=== PATIENT | male | born 1975 | race Caucasian/White ===

== ENCOUNTER 2016-11-29 13:38 | Outpatient (CLI) ==
[2015-10-26 20:24] VITALS: BMI 29.2
[2016-11-29 14:11] LABS: BASOPHILS % (AUTO) 0.5 % (0.0-3.0); EOSINOPHILS # (AUTO) 0.1 K/ul (0.0-0.7); EOSINOPHILS % (AUTO) 1.4 % (0.0-7.0); HEMATOCRIT 43.8 % (42.0-52.0); HEMOGLOBIN 15.4 g/dl (14.0-18.0); IMMATURE GRANULOCYTE % (AUTO) 0.3 % (0.0-5.0); LYMPHOCYTES # (AUTO) 1.8 K/uL (0.60-3.4); LYMPHOCYTES % (AUTO) 24.2 (10.0-50.0); MEAN CORPUSCULAR HEMOGLOBIN 32.8 pg (27.0-31.0); MEAN CORPUSCULAR HGB CONC 35.2 (31.8-35.4); MEAN CORPUSCULAR VOLUME 93.2 fl (80.0-94.0); MONOCYTES # (AUTO) 0.6 K/uL (0.4-2.0); MONOCYTES % (AUTO) 7.8 (0-10); NEUTROPHILS # (AUTO) 4.8 K/ul (2.0-6.9); NEUTROPHILS % (AUTO) 65.8; PLATELET COUNT 212 10^3/uL (140-440); WHITE BLOOD COUNT 7.28 K/ul (4.2-10.2)
[2016-11-29 14:51] LABS: ALBUMIN 3.8 g/dL (3.4-5.0); ALBUMIN/GLOBULIN RATIO 1.36; ANION GAP 13.5; BILIRUBIN,TOTAL 0.5 mg/dL (0.00-1.20); BUN/CREATININE RATIO 11.6; CHOL/HDL RATIO 2.9 (4.5-6.4); CREATININE 1.12 mg/dL (0.60-1.10); POTASSIUM 4.5 mmol/L (3.5-5.1); TOTAL PROTEIN 6.6 g/dL (6.4-8.2)
--- NOTE | 2016-11-29 15:05 | DI ---
EXAM: PA and lateral views of the chest HISTORY: Primary hypertension COMPARISON: None FINDINGS: The cardiomediastinal silhouette is normal. There is no pneumothorax or pleural effusion . There is no consolidation, nodule or mass. The osseous structures are unremarkable. IMPRESSION: No acute cardiopulmonary process
--- NOTE | 2016-11-29 15:08 | DI ---
EXAM: Three views of the cervical spine HISTORY: Upper extremity bilateral paresthesias. COMPARISON: None FINDINGS: Vertebral bodies demonstrate normal height, disc space and alignment. There is no nehal thony fracture or subluxation. The facets and posterior processes are normal. Prevertebral soft tis sues are normal. The odontoid process is midline without fracture. IMPRESSION: No acute osseous abnormality or compression fracture of the cervical spine.
== END 2016-11-29 13:39 | disposition home or self-care (01) ==
LOC: LAB 13:38
PROVIDERS: ATTEND Nurse Practitioner Family
DX: E78.5 Hyperlipidemia, unspecified (principal); F32.9 Major depressive disorder, single episode, unspecified; I10 Essential (primary) hypertension; M51.9 Unspecified thoracic, thoracolumbar and lumbosacral intervertebral disc disorder; R20.2 Paresthesia of skin; E55.9 Vitamin D deficiency, unspecified; R53.83 Other fatigue
CPT/HCPCS: 36415; 80053; 80061; 82306; 84402; 85025; 93005; 93010

== ENCOUNTER 2016-12-15 09:31 | Outpatient (CLI) ==
[2015-10-26 20:24] VITALS: BMI 29.2
--- NOTE | 2016-12-15 10:38 | DI ---
EXAM: Chest two view, frontal and lateral views. HISTORY: Severe hypertension. COMPARISON: None available. FINDINGS: The heart size is normal. There is no pulmonary vascular congestion. The lungs are matthias r. No pleural effusion or pneumothorax is seen. No acute osseous abnormality identified. IMPRESSION: No acute cardiopulmonary process.
--- NOTE | 2016-12-15 11:14 | US ---
EXAM: Ultrasound retroperitoneal complete. HISTORY: Severe hypertension. COMPARISON: None available. TECHNIQUE: Multiple cummings scale and color Doppler images. FINDINGS: Right kidney measures 10.5 x 4.6 x 4.7 cm. The left kidney measures 11.1 x 5.4 x 4.2 cm. Simple right renal cyst measures 1.3 x 0.9 x 1.1 cm in the upper pole cortex. Corticomedullary di fferentiation is normal. There is no hydronephrosis. Urinary bladder is unremarkable. IMPRESSION: 1. No acute sonographic abnormality of the kidneys or bladder. 2. Simple right renal cyst.
--- NOTE | 2016-12-15 11:15 | US ---
EXAM: Ultrasound renal Doppler. HISTORY: Severe hypertension. COMPARISON: None available. TECHNIQUE: Cheng-scale and color Doppler images. FINDINGS: Right kidney measures 10.5 cm in length. There is no hydronephrosis. Peak systolic velocity measurement in the right renal artery are 1.2, 1.1 and 1.0 meters per second in the origin, midportion and distal portion respectively. Right renal artery to aortic ratios john ure 1.2, 1.1 and 1.0. Right renal resistive index measures 0.59. Left kidney measures 11.1 cm in length. There is no hydronephrosis. Peak systolic velocity measurements in the left renal artery are 1.0, 0.9 and 0.9 meters per second in the origin, midportion and distal portion respectively. Left renal artery to aortic ratios measu re 1.0, 0.9 and 0.9. Left renal resistive index measures 0.53. Venous outflow is seen bilaterally. IMPRESSION: No evidence for hemodynamically significant stenosis in the right or left renal artery.
== END 2016-12-15 09:32 | disposition home or self-care (01) ==
LOC: RAD 09:31
PROVIDERS: ATTEND Internal Medicine
DX: I10 Essential (primary) hypertension (principal)
CPT/HCPCS: 76770

== ENCOUNTER 2016-12-16 06:27 | Outpatient (CLI) ==
[2015-10-26 20:24] VITALS: BMI 29.2
--- NOTE | 2016-12-19 12:22 | ECHO2D ---
Date of Exam: 12/16/16 Ordering Physician: [facility] Reason for Echo: HTN, ABNORMAL EKG M-Mode Normal Adult Results LV Dimensions Normal Adult Results AoV Opening excursions >1.6 >1.6 LVEDD-base- 3.5-5.8 4.3 Ao root dimensions 2.0-3.7 3.3 LVESD-base- 3.1-4.6 L. Atrium dimensions 1.9-3.8 3.6 Post. Wall thickness 0.8-1.1 1.3 IV septum (thickness) 0.7-1.2 1.4 Post. Wall excursion 0.72-1.3 NORMAL Septal motion NORMAL Systolic motion R. Ventricular cavity 1.5-2.0 NORMAL LVEF 60% 55% Paradoxical septal wall motion NORMAL 2-D :2-D M Mode Echocardiogram was performed using apical four chamber and left parasternal long and short axis views. Mitral, tricuspid and aortic valves appear to be normal. Contractility of the left ventricle seems to be normal, so is the cavity size. Left atrial cavity size and aortic root appear to be normal. There is no pericardial effusion. There is no thrombus noted in the left ventricular or left aortic cavity. No mitral valve prolapse noted. M-MODE: MV: NORMAL AV: NORMAL TV: NORMAL PV: CHAMBER SIZE: NORMAL WALL MOTION: NORMAL PERICARDIUM: NORMAL INTERPRETATION: 1. MILD LEFT VENTRICULAR HYPERTROPHY 2. NORMAL LEFT VENTRICULAR CONTRACTILITY 3. NORMAL VALVES MTDD
== END 2016-12-16 06:28 | disposition home or self-care (01) ==
LOC: CAR 06:27
PROVIDERS: ATTEND Internal Medicine
DX: I10 Essential (primary) hypertension (principal); R94.31 Abnormal electrocardiogram [ECG] [EKG]

== ENCOUNTER 2016-12-19 06:27 | Outpatient (CLI) ==
[2015-10-26 20:24] VITALS: BMI 29.2
--- NOTE | 2016-12-20 09:08 | STRESSECHO ---
Date of Test: 12/19/16 Reason for Exam: HTN, ABNORMAL EKG Ordering Physician: GINO Current Medications: CELEXA, LISINOPRIL, NORCO, TIZANIDINE, ZOFRAN, GABAPENTIN Physical Findings: S1, S2, NO S3 Resting EKG: SINUS RHYTHM/NO ACUTE CHANGES Target Heart Rate: 152/179 STAGE MPH/GRADE HEART RATE BPM BLOOD PRESSURE mmhg RHYTHM S-T SEGMENT +/- UP DOWN SYMPTOMS,COMMENTS At Rest 60 118/82 SR X NONE 1 1.7/10% 100 146/76 SR X NONE 2 2.5/12% 3 3.4/14% 4 4.2/16% 5 5.0/18% Immediately after 104 138/80 SR X BACK PAIN Durations of Exercise: 4:41 Maximum Heart Rate Reached: 104 Reason for Termination: BACK PAIN 4 MIN POST EXERCISE: HR 57 BPM, BP 138/88 MMHG, SINUS RHYTHM, S-T SEGMENT +/- INTERPRETATION: 92% OXYGEN SATURATION WITH EXERCISE ON ROOM AIR METS 4.6 1. NO EVIDENCE OF ISCHEMIA BY ST-T WAVE CHANGES FROM HEART RATE 60/MINUTE TO 104 /MINUTE 2. NO CHEST PAIN OR CHEST DISCOMFORT 3. NO ARRHYTHMIAS 4. NO ST-T WAVE CHANGES FROM BASELINE NORMAL LEFT VENTRICULAR CONTRACTILITY--RESTING AND POST EXERCISE MTDD
--- NOTE | 2016-12-21 08:46 | ECHOSTRESS ---
Date of Exam: 12/19/16 Ordering Physician: JOSE ALFREDO Reason for Echo: HYPERTENSION, ABNORMAL EKG, STRESS TEST--NO ISCHEMIA M-Mode Normal Adult Results LV Dimensions Normal Adult Results AoV Opening excursions >1.6 LVEDD-base- 3.5-5.8 Ao root dimensions 2.0-3.7 LVESD-base- 3.1-4.6 L. Atrium dimensions 1.9-3.8 Post. Wall thickness 0.8-1.1 IV septum (thickness) 0.7-1.2 Post. Wall excursion 0.72-1.3 Septal motion Systolic motion R. Ventricular cavity 1.5-2.0 LVEF 60% Paradoxical septal wall motion 2-D: NORMAL LEFT VENTRICULAR CONTRACTILITY--RESTING AND POST EXERCISE M-MODE: MV: AV: TV: PV: CHAMBER SIZE: WALL MOTION: NORMAL LEFT VENTRICULAR CONTRACTILITY--RESTING AND POST EXERCISE PERICARDIUM: INTERPRETATION: 1. NORMAL LEFT VENTRICULAR CONTRACTILITY--RESTING AND POST EXERCISE MTDD
== END 2016-12-19 06:28 | disposition home or self-care (01) ==
LOC: CAR 06:27
PROVIDERS: ATTEND Internal Medicine
DX: I10 Essential (primary) hypertension (principal); R94.31 Abnormal electrocardiogram [ECG] [EKG]

== ENCOUNTER 2017-02-11 00:01 | Outpatient (CLI) ==
[2015-10-26 20:24] VITALS: BMI 29.2
== END 2017-02-11 00:02 ==
LOC: AMBL 00:01
PROVIDERS: ATTEND Internal Medicine Geriatric Medicine
DX: S01.01XA Laceration without foreign body of scalp, initial encounter (principal); R42 Dizziness and giddiness; F10.129 Alcohol abuse with intoxication, unspecified; R11.0 Nausea; H57.04 Mydriasis; Y00.XXXA Assault by blunt object, initial encounter

== ENCOUNTER 2017-02-20 09:59 | Outpatient (CLI) ==
[2015-10-26 20:24] VITALS: BMI 29.2
--- NOTE | 2017-02-20 13:38 | MRI ---
EXAM: Lumbar spine MRI without contrast. HISTORY: Low back pain with radiculopathy. COMPARISON: Lumbar spine MRI 09/23/2015 and lumbar spine radiographs 10/09/2015. TECHNIQUE: Multiplanar, multisequence MR images were acquired of the lumbar spine without contrast. FINDINGS: Five lumbar-type vertebra are present. There is 2.5 mm degenerative retrolisthesis of L4 on L5 and 2 mm anterolisthesis of L5 on S1 due to chronic bilateral L5 pars interarticularis defect s. The lumbar vertebra are normal in height. Intrinsic bone marrow signal is heterogeneous with sm all areas of fatty infiltration. There is mild disc space narrowing and disc desiccation at L4-5 an d L5-S1. Small ventral and lateral osteophytes are present in the lower lumbar spine. There is mil d endplate irregularity with bright STIR signal edema along the posterior endplates at L4-5. This m ay be due to increased stress or motion at this level. Conus medullaris ends at L1 and has normal s ignal intensity. Canal diameter is developmentally narrow. The partially visualized liver, spleen and left kidney are unremarkable. There is either a prominen t yolanda or cyst in the upper pole of the right kidney. L1-2: The intervertebral disc is normal. L2-3: The intervertebral disc is normal. L3-4: There is a minimal disc bulge without central canal stenosis or foraminal stenosis. L4-5: There is a minor disc bulge with a small central disc protrusion and annular fissure that eff aces the ventral thecal sac. Mild bilateral facet arthropathy and ligamentum flavum hypertrophy is p resent and there is mild spinal stenosis and minor bilateral foraminal stenosis. L5-S1: There is anterolisthesis of L5 on S1 and there is a pseudo disc bulge/posterior disc bulge t hat is asymmetric to the left with a small superimposed left foraminal disc protrusion and annular f issure that encroaches on the traversing left L4 nerve. Mild bilateral facet arthropathy and mild l igamentum flavum hypertrophy is present. There is mild left and minor right foraminal stenosis. IMPRESSION: 1. No change 2 mm anterolisthesis L5 on S1 due to chronic bilateral L5 pars interarticularis defect s. 2. Mild disc bulge L5-S1 that is asymmetric to the left with small left foraminal disc protrusion t hat encroaches on the left L5 nerve. 3. Small central disc protrusion L4-5 and mild spinal stenosis.
== END 2017-02-20 10:00 | disposition home or self-care (01) ==
LOC: RAD 09:59
PROVIDERS: ATTEND Nurse Practitioner Family
DX: M51.9 Unspecified thoracic, thoracolumbar and lumbosacral intervertebral disc disorder (principal); M54.10 Radiculopathy, site unspecified

== ENCOUNTER 2017-03-08 09:02 | Outpatient (CLI) ==
[2015-10-26 20:24] VITALS: BMI 29.2
--- NOTE | 2017-03-08 14:58 | MRI ---
EXAM: MRI cervical spine without IV contrast. DATE: 03/08/2017. HISTORY: Cervicalgia. TECHNIQUE: Sagittal and axial T1W and T2W sequences of the cervical spine along with sagittal IR an d coronal T2W sequences were obtained using 1.5 Nanci magnet. No IV contrast. COMPARISON: C-spine x-rays 02/26/2017. MRI T-spine seven September 2015. FINDINGS: Minimal rightward curvature of the mid cervical spine is noted. No acute c-spine fractur e, subluxation, osseous malignancy, or jumped facet is evident. Cervical vertebra are normal in hei ght. Bone marrow signal is normal. The intervertebral discs are normal in height and signal. Cerv ical and upper thoracic spinal cord reveals no syrinx, cord edema, myelomalacia, or neoplasm. Visible brainstem and cerebellum are normal. Minor adenoid tissue prominence is benign. Trachea, l arynx, and epiglottis are normal. No thyroid, submandibular, or parotid gland neoplasm is evident. No cervical lymphadenopathy, neck mass, apical lung mass, pneumonia, or pleural effusion is demonst rated. Segmental analysis: C2-3: Normal. C3-4: Minor posterior disc bulge (1.2 mm AP) does not contact the cord. Canal is 10.6 mm AP. Mild bilateral foraminal stenoses are due to uncinate hypertrophy and minor facet disease. C4-5: Minimal posterior disc bulge (1 mm AP) does not contact the cord. Canal is 10.9 mm AP. Each foramen is patent. C5-6: Minimal posterior disc/osteophyte complex (1.4 mm AP) does not contact the cord. There is mi nor ligamentum flavum hypertrophy. Canal is 9 mm AP. Mild bilateral foraminal stenoses are due to uncinate hypertrophy. C6-7: Broad posterior disc/osteophyte complex (2.1 mm AP) does not contact the cord. There is mild ligamentum flavum hypertrophy. Canal is 9.1 mm AP. Moderate /marked right and moderate left sherman inal stenoses are due to uncinate hypertrophy and minor left facet disease. C7-T1: Normal. T1-2: Normal. IMPRESSIONS: 1. C-spine minor rightward curvature, mild facet arthropathy, and mild DDD. 2. Mild central canal stenoses at C5-6 and C6-7. 3. Multilevel foraminal stenoses, especially C6-7.
== END 2017-03-08 09:03 | disposition home or self-care (01) ==
LOC: RAD 09:02
PROVIDERS: ATTEND Nurse Practitioner Family
DX: M54.2 Cervicalgia (principal); M54.12 Radiculopathy, cervical region

== ENCOUNTER 2017-03-16 15:10 | Outpatient (CLI) ==
[2015-10-26 20:24] VITALS: BMI 29.2
--- NOTE | 2017-03-17 04:42 | MRI ---
EXAM: MRI thoracic spine without IV contrast. DATE: 16 Mar 2017. HISTORY: Thoracic back pain. TECHNIQUE: Sagittal and axial T2W and T1W sequences of the thoracic spine along with sagittal IR an d coronal T2W sequences were obtained using 1.2 Nanci magnet. No IV contrast. COMPARISON: MRI L-spine 23 September 2015. MRI T-spine 09/28/2015. FINDINGS: There are 12 thoracic vertebra with paired ribs. Minor rightward curvature of the mid th oracic spine is evident. No acute T-spine fracture, subluxation, osseous malignancy, or jumped face t is evident. Thoracic vertebra are normal in height. Bone marrow signal is normal. Intervertebra l discs are normal in height. Bone marrow signal somewhat heterogeneous due to areas of fatty infil tration near the vascular plexus in each of the thoracic vertebra. Conus medullaris terminates at T 12-L1. No thoracic cord edema, syrinx, myelomalacia, or neoplasm is evident. Visible thyroid gland, trachea, thoracic esophagus, and thoracic aorta are normal. No mediastinal l ymphadenopathy, hilar lymphadenopathy, pneumonia, lung mass, or pleural effusion is detected. No ac [place] rib fracture, suspicious rib neoplasm, paraspinal mass, or chest wall mass is demonstrated. Vis ible portion of the shoulder reveals minor bilateral AC joint arthritis. Visible portions of the li shalom, spleen, adrenal glands and kidneys are normal. Segmental analysis: T1-2: The normal. T2-3: Normal. T3-4: Normal. T4-5: Normal. T5-6: Normal. T6-7: Normal, except for dorsal epidural fat causing borderline central canal stenosis. T7-8: Normal, except for dorsal epidural fat causing borderline central canal stenosis. T8-9: Normal. T9-10: Normal. T10-11: Normal, except for minimal facet arthropathy. T11-12: Normal. T12-L1: Normal. IMPRESSIONS: 1. Thoracic spine minor facet arthropathy. No foraminal stenosis. 2. T6-7 and T7-8 borderline central stenoses due to epidural fat. 3. Mild, benign bone marrow fatty infiltration.
== END 2017-03-16 15:11 | disposition home or self-care (01) ==
LOC: RAD 15:10
PROVIDERS: ATTEND Nurse Practitioner Family
DX: M54.6 Pain in thoracic spine (principal)

== ENCOUNTER 2017-05-08 11:30 | Outpatient (CLI) ==
[2015-10-26 20:24] VITALS: BMI 29.2
[2017-05-08 12:31] LABS: BASOPHILS % (AUTO) 0.6 % (0.0-3.0); EOSINOPHILS # (AUTO) 0.1 K/ul (0.0-0.7); EOSINOPHILS % (AUTO) 1.1 % (0.0-7.0); HEMATOCRIT 47.9 % (42.0-52.0); IMMATURE GRANULOCYTE % (AUTO) 0.2 % (0.0-5.0); LYMPHOCYTES % (AUTO) 30.1 (10.0-50.0); MEAN CORPUSCULAR HEMOGLOBIN 32.3 pg (27.0-31.0); MEAN CORPUSCULAR HGB CONC 35.5 (31.8-35.4); MEAN CORPUSCULAR VOLUME 91.1 fl (80.0-94.0); MONOCYTES # (AUTO) 0.4 K/uL (0.4-2.0); NEUTROPHILS # (AUTO) 4.1 K/ul (2.0-6.9); PLATELET COUNT 230 10^3/uL (140-440); RED BLOOD COUNT 5.26 10^6/ul (4.70-6.10); WHITE BLOOD COUNT 6.52 K/ul (4.2-10.2)
[2017-05-08 12:38] LABS: BILIRUBIN,URINE Negative (NEGATIVE); KETONES,URINE Negative (NEGATIVE); LEUKOCYTE ESTERASE ,URINE Negative (NEGATIVE); NITRITE,URINE Negative (NEGATIVE); PH,URINE 5.5 (5-9); PROTEIN,URINE Negative (NEGATIVE); URINE, BLOOD Trace-intact (NEGATIVE)
[2017-05-08 12:41] LABS: ADD URINE MICROSCOPIC YES
[2017-05-08 12:47] LABS: ALBUMIN 4.2 g/dL (3.4-5.0); ALBUMIN/GLOBULIN RATIO 1.2; ANION GAP 15.6; BILIRUBIN,TOTAL 0.61 mg/dL (0.00-1.20); BUN/CREATININE RATIO 8.6; CHOL/HDL RATIO 3.6 (4.5-6.4); CREATININE 0.93 mg/dL (0.60-1.10); POTASSIUM 4.6 mmol/L (3.5-5.1); TOTAL PROTEIN 7.7 g/dL (6.4-8.2)
[2017-05-08 12:48] LABS: COCAIN SCREEN,URINE NEGATIVE (NEGATIVE)
== END 2017-05-08 11:31 | disposition home or self-care (01) ==
LOC: LAB 11:30
PROVIDERS: ATTEND Nurse Practitioner Family
DX: I10 Essential (primary) hypertension (principal); M51.9 Unspecified thoracic, thoracolumbar and lumbosacral intervertebral disc disorder; M54.2 Cervicalgia; M54.12 Radiculopathy, cervical region
CPT/HCPCS: 36415; 80053; 80061; 80306; 81001; 85025

== ENCOUNTER 2017-06-12 09:58 | Emergency (ER) ==
[2017-06-12 10:01] VITALS: BP 232/114; TEMP 98.1; BMI 25.1
[2017-06-12] MEDS ORDERED: NITROSTAT SL PRN (10:14)
[2017-06-12] MEDS ORDERED: ASPIRIN CHEWABLE PO STA (10:14)
[2017-06-12] MEDS ORDERED: ZESTRIL PO STA (10:17)
[2017-06-12 10:24] LABS: BASOPHILS # (AUTO) 0.1 K/uL (0-0.2); BASOPHILS % (AUTO) 0.6 % (0.0-3.0); EOSINOPHILS # (AUTO) 0.1 K/ul (0.0-0.7); EOSINOPHILS % (AUTO) 0.7 % (0.0-7.0); HEMATOCRIT 47.8 % (42.0-52.0); HEMOGLOBIN 17.6 g/dl (14.0-18.0); IMMATURE GRANULOCYTE % (AUTO) 0.5 % (0.0-5.0); LYMPHOCYTES # (AUTO) 1.7 K/uL (0.60-3.4); LYMPHOCYTES % (AUTO) 17.8 (10.0-50.0); MEAN CORPUSCULAR HEMOGLOBIN 33.1 pg (27.0-31.0); MEAN CORPUSCULAR HGB CONC 36.8 (31.8-35.4); MONOCYTES # (AUTO) 0.5 K/uL (0.4-2.0); MONOCYTES % (AUTO) 5.3 (0-10); NEUTROPHILS # (AUTO) 7.1 K/ul (2.0-6.9); NEUTROPHILS % (AUTO) 75.1; PLATELET COUNT 234 10^3/uL (140-440); RED BLOOD COUNT 5.31 10^6/ul (4.70-6.10); WHITE BLOOD COUNT 9.42 K/ul (4.2-10.2)
--- NOTE | 2017-06-12 10:47 | DI ---
EXAM: Single view of the chest. History: Chest pain. Comparison: Chest radiograph 12/15/2016 Findings: Heart size is normal. No focal consolidation. No appreciable pleural fluid and no pneum othorax. No acute osseous abnormalities. Impression: No acute cardiopulmonary process.
[2017-06-12 10:50] LABS: ALBUMIN 4.5 g/dL (3.4-5.0); ALBUMIN/GLOBULIN RATIO 1.5; ANION GAP 14.4; BILIRUBIN,TOTAL 0.68 mg/dL (0.00-1.20); BUN/CREATININE RATIO 17.28; CALCIUM 10.6 mg/dL (8.2-10.2); CREATININE 0.81 mg/dL (0.60-1.10); POTASSIUM 4.4 mmol/L (3.5-5.1); TOTAL PROTEIN 7.5 g/dL (6.4-8.2); TROPONIN I 0.024 ng/ml (0.0000-0.4000)
--- NOTE | 2017-06-12 11:30 | ED.PDOC ---
General ED Provider: Dr. LANA MENDEZ Chief Complaint: Chest Pain Stated Complaint: CHEST PAIN Time Seen by Physician: 10:00 (SEEN WITH KAYLEEN ) Mode of Arrival: Walk-In Information Source: Patient Exam Limitations: No limitations [facility] and Triage Documentation Reviewed and Agree: Yes Cardiovascular Complaint Exam - Chest Pain Complaint/Exam Onset: Gradual Duration: 1 DAY Symptoms Are: Still present Timing: Constant Initial Severity: Moderate Current Severity: Moderate Location: Reports: Midsternal Pain Radiates: Reports: None Character: Reports: Aching, Tightness Aggravating: Reports: None Alleviating: Reports: None Associated Signs and Symptoms: Denies: Diaphoresis, Nausea, Vomiting, Fever, Palpitations, Cough, Hemoptysis, Back pain, Abdominal pain, Dizziness, Short of air, Calf pain, Calf swelling Related History: Reports: Similar episode History of Healthcare-Acquired Pneumonia: Reports: No AMI/ACS Risk Factors: Reports: Hypertension, Smoking TAD Risk Factors: Reports: Hypertension Pulmonary Embolism Risk Factors: Reports: None Prior Care for this Complaint: No Recent Stress Test: No Recent Echo/LV Function: No JVD Present: No Subcutaneous Emphysema Present: No Diminshed Breath Sounds: No Reproducible Chest Wall Pain: No Bilateral Pulses Present: No Unequal Pulses Noted: No If Risk Factors for AMI/ACS Consider: EKG, Cardiac Enzymes Review of Systems - Review Of Systems Constitutional: Reports: No symptoms Eyes: Reports: No symptoms Ears, Nose, Mouth, Throat: Reports: No symptoms Respiratory: Reports: No symptoms Cardiac: Reports: Chest pain GI: Reports: No symptoms : Reports: No symptoms Musculoskeletal: Reports: No symptoms Skin: Reports: No symptoms Neurological: Reports: No symptoms Endocrine: Reports: No symptoms Hematologic/Lymphatic: Reports: No symptoms All Other Systems: Reviewed and Negative Past Medical History - Past Medical History Previously Healthy: No Endocrine: Reports: Dyslipidemia Cardiovascular: Reports: Hypertension Respiratory: Reports: None Hematological: Reports: None Gastrointestinal: Reports: None Genitourinary: Reports: None Neuro/Psych: Reports: None Musculoskeletal: Reports: Arthritis, Back Pain Cancer: Reports: None - Surgical History General Surgical History: Reports: None - Family History Family History: Reports: None - Social History Smoking Status: Never smoker, Chews tobacco Hx Substance Use: No Alcohol Screening: None Physical Exam - Physical Exam Appearance: Well-appearing, No pain distress, Well-nourished Eyes: MARTÍN, EOMI, Conjunctiva clear ENT: Ears normal, Nose normal, Oropharynx normal Respiratory: Airway patent, Breath sounds clear, Breath sounds equal, Respirations nonlabored Cardiovascular: RRR, Pulses normal, No rub, No murmur GI/: Soft, Nontender, No masses, Bowel sounds normal, No Organomegaly Musculoskeletal: Normal strength, ROM intact, No edema, No calf tenderness Skin: Warm, Dry, Normal color Neurological: Sensation intact, Motor intact, Reflexes intact, Cranial nerves intact, Alert, Oriented Psychiatric: Affect appropriate, Mood appropriate Interpretation - Can Intake Worker Rate: Normal Rhythm: Sinus Ectopy: None - EKG Interpretation Rate: Normal Rhythm: Sinus Ectopy: None ([facility]) Rate: Normal Rhythm: Sinus ([facility]) [place]: [place] Critical Care Note - Critical Care Note Total Time (mins): 0 Course - Course Hematology/Chemistry: 06/12/17 10:15 06/12/17 10:15 Orders, Labs, Meds: Lab Review 06/12/17 10:15 WBC 9.42 RBC 5.31 Hgb 17.6 Hct 47.8 MCV 90.0 MCH 33.1 H MCHC 36.8 H RDW Coeff of Rossy 12.3 Plt Count 234 Immature Gran % (Auto) 0.5 Neut % (Auto) 75.1 Lymph % (Auto) 17.8 [place] % (Auto) 5.3 Eos % (Auto) 0.7 Baso % (Auto) 0.6 Immature Gran # (Auto) 0.1 Neut # 7.1 H Lymph # 1.7 [place] # 0.5 Eos # 0.1 Baso # 0.1 Sodium 141 Potassium 4.4 Chloride 108 H Carbon Dioxide 23 Anion Gap 14.4 BUN 14 Creatinine 0.81 Estimated GFR (MDRD) 105.00 BUN/Creatinine Ratio 17.28 Glucose 98 Calcium 10.6 H Total Bilirubin 0.68 AST 14 L ALT 15 Alkaline Phosphatase 64 Total Creatine Kinase 41 Troponin I 0.0240 Total Protein 7.5 Albumin 4.5 Globulin 3.0 Albumin/Globulin Ratio 1.50 Orders Category Date Time Status EKG-(ED ONLY) Stat CARDIO 06/12/17 10:08 Completed EKG-(ED ONLY) Stat CARDIO 06/12/17 11:00 Completed ED IV/MEDIPORT/POWERPORT .ONCE EMERGENCY 06/12/17 10:13 Active CBC W/ AUTO DIFF Stat LAB 06/12/17 10:15 Completed COMPREHENSIVE METABOLIC PANEL Stat LAB 06/12/17 10:15 Completed CREATINE KINASE Stat LAB 06/12/17 10:15 Completed D-DIMER Stat LAB 06/12/17 10:15 Received TROPONIN I Stat LAB 06/12/17 10:15 Completed 0.9 % Sodium Chloride [Saline Flush] MEDS 06/12/17 10:13 Active 1 syr IVF PRN PRN Aspirin [Aspirin Chewable] MEDS 06/12/17 10:14 Discontinued 324 mg PO ONCE STA Lisinopril [Zestril] MEDS 06/12/17 10:17 Discontinued 40 mg PO ONCE STA Nitroglycerin [Nitrostat] MEDS 06/12/17 10:14 Active 0.4 mg SL Q5MIN X 3 DOSES PRN CHEST, 1V AP ONLY Stat RADS 06/12/17 10:13 Completed Medications Generic Name Dose Route Start Last Admin Trade Name Freq PRN Reason Stop Dose Admin Nitroglycerin 0.4 mg 06/12/17 10:14 06/12/17 10:23 Nitrostat SL 0.4 mg Q5MIN X 3 DOSES PRN Administration Chest Pain Sodium Chloride 1 syr 06/12/17 10:13 06/12/17 10:23 Saline Flush IVF 1 syr PRN PRN Administration To flush IV Discontinued Medications Generic Name Dose Route Start Last Admin Trade Name Freq PRN Reason Stop Dose Admin Aspirin 324 mg 06/12/17 10:14 06/12/17 10:22 Aspirin Chewable PO 06/12/17 10:15 324 mg ONCE STA Administration Lisinopril 40 mg 06/12/17 10:17 06/12/17 11:06 Zestril PO 06/12/17 10:18 40 mg ONCE STA Administration Vital Signs: Temp Pulse Resp BP Pulse Ox 06/12/17 09:59 98.1 F 77 16 232/114 H 96 JESÚS Risk Score JESÚS Risk Score: Risk Score Odds of by 30D 0 0.1 (0.1-0.2) 1 0.3 (0.2-0.3) 2 0.4 (0.3-0.5) 3 0.7 (0.6-0.9) 4 1.2 (1.0-1.5) 5 2.2 (1.9-2.6) 6 3.0 (2.5-3.6) 7 4.8 (3.8-6.1) Departure - Departure Time of Disposition: 11:30 (STATED HE NEEDED TO GO HOME HE COULD NOT LAY HERE ANY MORE ) Disposition: AMA Discharge Problem: Chest pain Instructions: Angina (ED), Chest Pain (ED) Condition: Good Pt referred to PMD for follow-up: Yes Allergies/Adverse Reactions: Allergies No Known Allergies Allergy (Verified 06/12/17 10:01) Home Medications: Ambulatory Orders Hydrocodone/Acetaminophen [[place] 10-325 Tablet] 1 each PO TID 01/04/16 Tizanidine HCl [Zanaflex] 4 mg PO TID 01/04/16 Gabapentin 300 mg PO QID 02/14/17
== END 2017-06-12 11:25 | disposition left against medical advice (07) ==
LOC: ED 09:58
DX: R07.9 Chest pain, unspecified (principal); I10 Essential (primary) hypertension; E78.5 Hyperlipidemia, unspecified; F17.220 Nicotine dependence, chewing tobacco, uncomplicated
CPT/HCPCS: 36415; 80053; 82550; 84484; 85025; 85379; 93005; 93010; 99284

== ENCOUNTER 2017-08-19 21:41 | Outpatient (CLI) ==
[2017-08-19 21:50] VITALS: BMI 25.1
== END 2017-08-19 21:42 | disposition home or self-care (01) ==
LOC: AMBL 21:41
PROVIDERS: ATTEND Internal Medicine Geriatric Medicine
DX: S09.90XA Unspecified injury of head, initial encounter (principal); S00.91XA Abrasion of unspecified part of head, initial encounter; S30.810A Abrasion of lower back and pelvis, initial encounter; S01.511A Laceration without foreign body of lip, initial encounter; Y04.8XXA Assault by other bodily force, initial encounter

== ENCOUNTER 2017-08-19 21:50 | Emergency (ER) ==
[2017-08-19 21:50] VITALS: BMI 25.1
[2017-08-19 21:58] VITALS: BP 177/113; TEMP 101.1
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
== END 2017-08-19 23:05 | disposition left against medical advice (07) ==
LOC: ED 21:50
DX: S09.90XA Unspecified injury of head, initial encounter (principal); S19.9XXA Unspecified injury of neck, initial encounter; S29.9XXA Unspecified injury of thorax, initial encounter; Y04.2XXA Assault by strike against or bumped into by another person, initial encounter; F10.129 Alcohol abuse with intoxication, unspecified; F17.220 Nicotine dependence, chewing tobacco, uncomplicated; I10 Essential (primary) hypertension
CPT/HCPCS: 99284

== ENCOUNTER 2017-10-04 12:54 | Outpatient (CLI) ==
[2017-10-04 13:03] LABS: BASOPHILS % (AUTO) 0.5 % (0.0-3.0); EOSINOPHILS # (AUTO) 0.1 K/ul (0.0-0.7); EOSINOPHILS % (AUTO) 1.5 % (0.0-7.0); HEMATOCRIT 53.1 % (42.0-52.0); HEMOGLOBIN 18.8 g/dl (14.0-18.0); IMMATURE GRANULOCYTE % (AUTO) 0.3 % (0.0-5.0); LYMPHOCYTES # (AUTO) 1.9 K/uL (0.60-3.4); LYMPHOCYTES % (AUTO) 24.5 (10.0-50.0); MEAN CORPUSCULAR HEMOGLOBIN 33.6 pg (27.0-31.0); MEAN CORPUSCULAR HGB CONC 35.4 (31.8-35.4); MONOCYTES # (AUTO) 0.6 K/uL (0.4-2.0); NEUTROPHILS # (AUTO) 4.9 K/ul (2.0-6.9); NEUTROPHILS % (AUTO) 65.2; PLATELET COUNT 185 10^3/uL (140-440); RED BLOOD COUNT 5.59 10^6/ul (4.70-6.10); WHITE BLOOD COUNT 7.54 K/ul (4.2-10.2)
[2017-10-04 13:14] LABS: H. PYLORI ANTIBODY NEGATIVE (NEGATIVE); H.PYLORI INTERNAL QC INTERNAL QC VALID
[2017-10-04 13:18] LABS: COCAIN SCREEN,URINE NEGATIVE (NEGATIVE)
[2017-10-04 14:13] LABS: ALBUMIN 4.3 g/dL (3.4-5.0); ALBUMIN/GLOBULIN RATIO 1.1; ANION GAP 15.5; BILIRUBIN,TOTAL 0.64 mg/dL (0.00-1.20); BUN/CREATININE RATIO 10.84; CALCIUM 10.6 mg/dL (8.2-10.2); CHOL/HDL RATIO 2.8 (4.5-6.4); CREATININE 0.83 mg/dL (0.60-1.10); POTASSIUM 4.5 mmol/L (3.5-5.1); TOTAL PROTEIN 8.2 g/dL (6.4-8.2)
== END 2017-10-04 12:55 | disposition home or self-care (01) ==
LOC: LAB 12:54
PROVIDERS: ATTEND Nurse Practitioner Family
DX: R19.7 Diarrhea, unspecified (principal); E78.5 Hyperlipidemia, unspecified; I10 Essential (primary) hypertension; R63.4 Abnormal weight loss
CPT/HCPCS: 36415; 80053; 80061; 80074; 80306; 84439; 84443; 85025; 86677

== ENCOUNTER 2017-10-05 13:57 | Emergency (ER) ==
[2017-10-05 14:02] VITALS: BP 189/109; TEMP 98.4; BMI 23.7
--- NOTE | 2017-10-05 14:24 | ED.PDOC ---
General ED Provider: Dr. SARAH MATTHEWS Chief Complaint: Hand Pain/Injury Stated Complaint: Hand pain; playing with his dog last night. [place] a pop and then had pain and swelling. Time Seen by Physician: 14:22 Mode of Arrival: Walk-In Information Source: Patient Exam Limitations: No limitations Primary Care Provider[facility] Nursing and Triage Documentation Reviewed and Agree: Yes Review of Systems - Review Of Systems Constitutional: Reports: No symptoms Respiratory: Reports: No symptoms Musculoskeletal: Reports: Joint pain (Right hand, 2nd, 3rd MCP joints) All Other Systems: Reviewed and Negative Past Medical History - Past Medical History Previously Healthy: No Endocrine: Reports: Dyslipidemia Cardiovascular: Reports: Hypertension Respiratory: Reports: None Hematological: Reports: None Gastrointestinal: Reports: None Genitourinary: Reports: None Neuro/Psych: Reports: None Musculoskeletal: Reports: Arthritis, Back Pain Cancer: Reports: None - Surgical History General Surgical History: Reports: None - Family History Family History: Reports: None - Social History Smoking Status: Never smoker, Chews tobacco Hx Substance Use: No Alcohol Screening: Occasionally - Immunizations Tetanus Shot up to Date: No Physical Exam - Physical Exam Appearance: Well-appearing Pain Distress: Mild (Right hand) 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 ) Skin: Warm, Dry, Normal color (Except R hand dorsum - 2nd thru 4th MCP joints which are swollen and erythemic; no lesions) Psychiatric: Affect appropriate, Mood appropriate Interpretation - Radiology Interpretation Radiology Interpretation By: Radiologist Radiology Results: Negative Exam Interpreted: Other (R hand) Critical Care Note - Critical Care Note Total Time (mins): 10 Course - Course Orders, Labs, Meds: Orders Category Date Time Status DEWEY [ED DEWEY WRAP] .ONCE EMERGENCY 10/05/17 14:57 Active HAND, RIGHT 3 VIEWS Stat RADS 10/05/17 14:25 Completed Vital Signs: Temp Pulse Resp BP Pulse Ox 10/05/17 13:58 98.4 F 63 18 189/109 H 93 L Departure - Departure Time of Disposition: 15:01 Disposition: HOME SELF-CARE Discharge Problem: Contusion of hand, right Instructions: Hematoma (ED) Condition: Good Pt referred to PMD for follow-up: Yes (Call for appointment) Allergies/Adverse Reactions: Allergies No Known Allergies Allergy (Verified 10/05/17 14:02) Home Medications: Ambulatory Orders Hydrocodone/Acetaminophen [[place] 10-325 Tablet] 1 each PO TID 01/04/16 Tizanidine HCl [Zanaflex] 4 mg PO TID 01/04/16 Gabapentin 300 mg PO QID 02/14/17 Bisoprolol Fumarate [Zebeta] 5 mg PO DAILY 08/19/17 Lisinopril [Zestril] 40 mg PO DAILY 08/19/17
--- NOTE | 2017-10-05 14:43 | DI ---
EXAM: Right hand three-view HISTORY: Pain, swelling COMPARISON: 08/15/2012 FINDINGS: The bones are normal. The joints are normal. No focal soft tissue abnormality. IMPERSSION: Normal examination.
== END 2017-10-05 15:15 | disposition home or self-care (01) ==
LOC: ED 13:57
DX: S60.221A Contusion of right hand, initial encounter (principal); F17.220 Nicotine dependence, chewing tobacco, uncomplicated
CPT/HCPCS: 99282

== ENCOUNTER 2018-01-05 08:52 | Emergency (ER) ==
[2018-01-05 09:01] VITALS: BP 207/99; TEMP 98.7; BMI 24.8
== END 2018-01-05 09:20 | disposition left against medical advice (07) ==
LOC: ED 08:52
DX: I10 Essential (primary) hypertension (principal); R25.1 Tremor, unspecified
CPT/HCPCS: 99281

== ENCOUNTER 2018-01-17 16:13 | Outpatient (CLI) | END 2018-01-17 16:14 | disposition home or self-care (01) | LOC: FCC-LAB 16:13 | PROVIDERS: ATTEND Nurse Practitioner Family | DX: E78.5 Hyperlipidemia, unspecified (principal); F32.9 Major depressive disorder, single episode, unspecified; I10 Essential (primary) hypertension | CPT/HCPCS: 36415; 80053; 80061; 85025 ==

== ENCOUNTER 2018-04-10 10:19 | Outpatient (CLI) | END 2018-04-10 10:20 | disposition home or self-care (01) | LOC: FCC-LAB 10:19 | PROVIDERS: ATTEND Nurse Practitioner Family | DX: E78.5 Hyperlipidemia, unspecified (principal); I10 Essential (primary) hypertension; F32.9 Major depressive disorder, single episode, unspecified; M54.9 Dorsalgia, unspecified; G89.29 Other chronic pain | CPT/HCPCS: 36415; 80053; 80061; 80306; 81001; 84439; 84443; 85025 ==

== ENCOUNTER 2018-05-10 11:53 | Observation (INO) ==
[2018-05-10] MEDS ORDERED: DEMEROL 100 MG/ML SYRINGE IVP PRN (12:50)
[2018-05-10 13:00] VITALS: BMI 22.8
--- NOTE | 2018-05-10 13:26 | DI ---
EXAM: Two views of the chest. History: Short of breath Comparison: Chest radiograph 06/12/2017 Findings: Heart size is normal. No focal consolidation. No appreciable pleural fluid and no pneumo thorax. No acute osseous abnormalities. Impression: No acute cardiopulmonary process.
[2018-05-10] MEDS: SODIUM CHLORIDE 1,000 ML IV SCH (13:46)
--- NOTE | 2018-05-10 13:52 | CT ---
EXAM: CT of the head without contrast History: Hypertension and headache. Technique: Multiplanar CT images through the head were obtained without the administration of IV con trast Findings: The visualized paranasal sinuses and mastoid air cells are clear in general. No acute josafat varial abnormalities. Intracranially the ventricular and cisternal spaces are normal in size, shape and configuration for a patient of this age. No dominant mass or midline shift. No hydrocephalous. No acute intracranial hemorrhage or abnormal extraaxial Impression: No acute intracranial process.
[2018-05-10] MEDS: ZOFRAN 4 MG/2 ML IVP PRN (14:10)
[2018-05-10] MEDS: DEMEROL 25 MG/ML VIAL IVP PRN ×2 (14:10→21:50)
[2018-05-10] MEDS: NICODERM 21 MG TD SCH (20:56)
[2018-05-10] MEDS: SYMBICORT 80-4.5 MCG INHALER IH SCH (20:56)
[2018-05-11] MEDS: SODIUM CHLORIDE 1,000 ML IV SCH (02:46)
[2018-05-11] MEDS: DEMEROL 25 MG/ML VIAL IVP PRN ×2 (07:19→17:02)
[2018-05-11] MEDS: ZOFRAN 4 MG/2 ML IVP PRN ×2 (07:19→17:02)
[2018-05-11] MEDS ORDERED: ATROPINE SULFATE PFS ONE (08:19)
[2018-05-11] MEDS ORDERED: DOBUTAMINE 250 ML IV ONE (08:19)
[2018-05-11] MEDS: ZESTRIL PO SCH (09:04)
[2018-05-11] MEDS: SYMBICORT 80-4.5 MCG INHALER IH SCH ×2 (09:05→20:23)
[2018-05-11] MEDS: NICODERM 21 MG TD SCH (09:05)
[2018-05-11] MEDS: LOPRESSOR PO SCH (09:05)
--- NOTE | 2018-05-11 09:12 | DOBSTECHO ---
Date of Test: 05/11/18 Ordering Physician: DR. HARLEY QUIÑONES--HOSPITALIST Reason for Examination: CHEST PAIN, HYPERTENSION, SOB Current Medications: SYMBICORT, ZESTRIL, DEMEROL, LOPRESSOR, ZOFRAN Height: 71" Weight: 164 LBS Target Heart Rate: 151/178 S-T Segment Stage Time HR BPM BP MMHG Rhythm +/- Elevation Depression Comments/ Symptoms Control Sitting 54 142/88 SR X NONE Dobutamine 250mg/D5W 5cmg/KG/mn 10cmg/KG/mn 3:00 59 SR X NONE 15cmg/KG/mn 2:00 61 182/98 SR X NONE 20cmg/KG/mn 2:00 72 208/100 SR X NONE 25cmg/KG/mn 2:00 74 SR X NONE 30cmg/KG/mn :08 85 SR X NONE 35cmg/KG/mn 40cmg/KG/mn Time: 2:00 HR B/P Time: 6:00 HR B/P Time: 11 HR B/P Recovery 67 210/98 Recovery 64 198/100 Recovery 60 196/92 Total Time: 9:08 Maximum Heart Rate Reached: 85 BPM 95% OXYGEN SATURATION DURING DOBUTAMINE INFUSION Interpretation: 1. INCONCLUSIVE FOR ISCHEMIC ST-T WAVE CHANGES 2. HEART RATE RESTING 54 BPM TO 93 BPM WITH DOBUTAMINE WITH, NO CHANGES IN ST- T WAVE 3. NO CHEST PAIN OR CHEST DISCOMFORT 4. BLOOD PRESSURE RESPONSE--HYPERTENSION WITH DOBUTAMINE, SO THE TEST WAS STOPPED AT BLOOD PRESSURE OF 208 SYSTOLIC NORMAL RANULFO VENTRICULAR CONTRACTILITY--RESTING AND WITH DOBUTAMINE INFUSION PATIENT HAS QUESTIONABLE HISTORY OF GLAUCOMA ECHO: BORDERLINE LEFT VENTRICULAR HYPERTROPHY WITH NORMAL LEFT VENTRICULAR CONTRACTILITY MTDD
[2018-05-12] MEDS: DEMEROL 25 MG/ML VIAL IVP PRN ×2 (01:59→09:30)
[2018-05-12] MEDS: LOPRESSOR PO SCH (08:58)
[2018-05-12] MEDS: ZESTRIL PO SCH (08:58)
[2018-05-12] MEDS: ZOFRAN 4 MG/2 ML IVP PRN (08:58)
[2018-05-12] MEDS: NICODERM 21 MG TD SCH (08:58)
[2018-05-12 09:26] VITALS: BP 158/88; TEMP 98.5
[2018-05-12] MEDS: SYMBICORT 80-4.5 MCG INHALER IH SCH (09:30)
--- NOTE | 2018-05-12 09:42 | PCM.HOSP ---
- Observation Care Discharge [id number] OBS Care Discharge (15630): 05/12 - Initial Observation Care [id number] High Complexity 70 Minutes (24976): 05/10 - Subsequent Observation Care [id number] 35 Minutes per Day (60177): 05/11
--- NOTE | 2018-05-13 09:33 | ECHO2D ---
Date of Exam: 05/11/18 Ordering Physician: HOSPITALIST--HARLEY QUIÑONES Room #: [id number] Reason for Echo: CHEST PAIN, HTN, SOB M-Mode Normal Adult Results LV Dimensions Normal Adult Results AoV Opening excursions >1.6 >1.6 LVEDD-base- 3.5-5.8 3.7 Ao root dimensions 2.0-3.7 3.7 LVESD-base- 3.1-4.6 L. Atrium dimensions 1.9-3.8 3.9 Post. Wall thickness 0.8-1.1 1.2 IV septum (thickness) 0.7-1.2 1.2 Post. Wall excursion 0.72-1.3 NORMAL Septal motion NORMAL Systolic motion R. Ventricular cavity 1.5-2.0 NORMAL LVEF 60% 54% Paradoxical septal wall motion NORMAL 2-D : 2-D M Mode Echocardiogram was performed using apical four chamber and left parasternal long and short axis views. Mitral, tricuspid and aortic valves appear to be normal. Contractility of the left ventricle seems to be normal, so is the cavity size. Left atrial cavity size and aortic root appear to be normal. There is no pericardial effusion. There is no thrombus noted in the left ventricular or left aortic cavity. No mitral valve prolapse noted. M-MODE: MV: NORMAL AV: NORMAL TV: NORMAL PV: CHAMBER SIZE: NORMAL WALL MOTION: NORMAL PERICARDIUM: NORMAL INTERPRETATION: 1. BORDERLINE LEFT VENTRICULAR HYPERTROPHY 2. NORMAL VALVES 3. NORMAL LEFT VENTRICULAR CONTRACTILITY MTDD
--- NOTE | 2018-05-13 09:37 | ECHOSTRESS ---
Date of Exam: 05/11/18 Ordering Physician: HOSPITALIST--HARLEY QUIÑONES Reason for Echo: CHEST PAIN, HTN SOB, STRESS TEST--INCONCLUSIVE FOR ISCHEMIA M-Mode Normal Adult Results LV Dimensions Normal Adult Results AoV Opening excursions >1.6 LVEDD-base- 3.5-5.8 Ao root dimensions 2.0-3.7 LVESD-base- 3.1-4.6 L. Atrium dimensions 1.9-3.8 Post. Wall thickness 0.8-1.1 IV septum (thickness) 0.7-1.2 Post. Wall excursion 0.72-1.3 Septal motion Systolic motion R. Ventricular cavity 1.5-2.0 LVEF 60% Paradoxical septal wall motion 2-D: NORMAL LEFT VENTRICULAR CONTRACTILITY AT REST AND DURING DOBUTAMINE INFUSION M-MODE: MV: AV: TV: PV: CHAMBER SIZE: WALL MOTION: NORMAL LEFT VENTRICULAR CONTRACTILITY AT REST AND DURING DOBUTAMINE INFUSION PERICARDIUM: INTERPRETATION: 1. NORMAL LEFT VENTRICULAR CONTRACTILITY AT REST AND DURING DOBUTAMINE INFUSION MTDD
--- NOTE | 2018-05-16 15:18 | PN ---
DATE OF SERVICE: 05/11/18 SUBJECTIVE: The patient was admitted from the office for the uncontrolled hypertension and chest pain to rule out acute coronary syndrome. Dr. Lazcano saw the patient and did the stress test and echocardiogram. The patient could not tolerated the stress test so he changed it to the Dobutamine stress echo, did show only a blood pressure response otherwise to ST-T wave changes. REVIEW OF SYSTEMS: CONSTITUTIONAL: No fever, no chills. HEENT: Normal. ENDOCRINE: No weight gain, no weight loss. CVS: No angina symptoms. No CHF symptoms. No palpitations. No atypical chest pain for CAD. No shortness of breath. No PND, no orthopnea. RESPIRATORY: No cough, no hemoptysis. GI: No nausea, no vomiting. No abdominal pain. : No hematuria. No polyuria. MUSCULOSKELETAL: No joint swelling. PSYCHIATRIC: Not anxious. No depression. No suicidal thoughts. No homicidal thoughts. SKIN: Intact. No rash. PHYSICAL EXAMINATION: V/S: Blood pressure 148/91, respiratory rate 16, heart rate 57, temperature 98.0 with saturation is 96%. HEENT: Normocephalic, atraumatic. Mucosa dry. Pallor positive. No icterus. NECK: Supple. No JVD, no carotid bruit. No lymphadenopathy. LUNGS: Clear to auscultation. No rales or rhonchi. HEART: S1, S2 normal. No S3. No murmur, gallop or regurgitation. ABDOMEN: Soft, nontender. Bowel sounds active. No rigidity. No rebound or guarding. No CVA tenderness. EXTREMITIES: No cyanosis, clubbing or pedal edema. MUSCULOSKELETAL: No joint swelling. NEUROLOGIC: Awake, alert. No focal deficit. LYMPHATIC: No lymph nodes palpable. SKIN: Intact. LABS: WBC 6.81, hgb 15.7, hct 164, sodium 139, potassium 4.2, chloride 111, bicarb 22 , BUN 14, creatinine 0.78 and glucose 95. Toxicology screen positive for the marijuana. ASSESSMENT: 1. Uncontrolled hypertension 2. Chest pain most likely from noncardiac 3. Anxiety 4. Depression 5. Chronic pain syndrome 6. Enlarged heart PLAN: 1. Zofran 2. IV fluids 3. Metoprolol 4. Demerol 5. Symbicort TIME SPENT: More than 35 minutes MTDD
--- NOTE | 2018-05-16 15:31 | DS ---
DATE OF SERVICE: 05/12/18 FINAL DIAGNOSIS: 1. Chest pain noncardiac 2. Hypertension uncontrolled and urgency 3. COPD 4. Back injury 2016 [facility] 5. Disc disease Cervical and the lumbar spine 6. Depression 7. 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 Heavy smoker DISCHARGE INSTRUCTIONS: Discharge the patient home. Continue the home medications. MEDICATIONS AT DISCHARGE: Bisoprolol Hydroxyzine 50mg PO twice a day Lisinopril 40mg PO daily Metoprolol 25mg PO daily Symbicort NEW PRESCRIPTIONS: None DIET INSTRUCTIONS: Cardiac and healthy diet ACTIVITY: As much as tolerated DISEASE SPECIFIC EDUCATION: Chest pain Coronary artery disease Uncontrolled hypertension Risk of stroke been discussed and verbalized understanding. HOSPITAL COURSE: Luis Fam who usually being followed by Rupali Jaramillo as she is not in the town came to see me. Been having lower back pains and I saw the patient in the office the blood pressure 190/110 and was having some chest pain and shortness of breath. Given his age and smoking history and family history the patient was admitted to the hospital for ruling out coronary artery disease. EKG did not show any acute ST-T wave changes. Admit for the observation. Troponin less than 0.01. Asked Dr. Lazcano to do the echocardiogram which did show the left ventricular hypertrophy. The patient is supposed to get stress echo but while the patient was doing the stress echo blood pressure shot up to 200/110 so it was stopped and Dr. Lazcano did the Dobutamine stress echo which did not show any acute ischemia changes. The patient being counseled about the lifestyle modification, exercise and verbalized understanding. The patient did not have any complaints at this time. Offered about the physical therapy and refused to do at this time. The patient will be discharged home today. TIME SPENT: MORE THAN 65 MINUTES [facility]
== END 2018-05-12 10:53 | disposition home or self-care (01) ==
LOC: INTOOBSV 11:53 → MEDSURG B 11:53 → UNDOADMIN 11:53
PROVIDERS: ADMIT Emergency Medicine; ATTEND Emergency Medicine
DX: R07.2 Precordial pain (principal); I16.0 Hypertensive urgency; R06.02 Shortness of breath; M25.50 Pain in unspecified joint; Z72.0 Tobacco use
CPT/HCPCS: 36415; 80053; 80306; 81001; 82550; 84484; 85025; 93005; 93010; 97802; 99217; 99220; 99226

== ENCOUNTER 2018-09-04 09:04 | Outpatient (CLI) | payer OTHER ==
--- NOTE | 2018-09-04 11:50 | MRI ---
EXAM: MRI lumbar spine without IV contrast. DATE: 09/04/2018. HISTORY: Thoracic and lumbar intervertebral disc disease. TECHNIQUE: Sagittal and axial T1W and T2W sequences of the lumbar spine along with sagittal IR and c oronal T2W sequences were obtained using 1.2 Nanci magnet. No IV contrast. COMPARISON: MRI L-spine [address] L-spine 21 September 2015. FINDINGS: There are five kha-weg-kzzfluk lumbar vertebra. Minor rightward curvature of the lumbar s pine is new since the prior study and could be positioning artifact. A 2.7 mm anterior subluxation o f L5 relative to L4 and a 3 mm anterolisthesis of L5 relative to S1 are observed. No other subluxati on, acute fracture, or osseous malignancy is detected. Bilateral L5 pars interarticularis defects ar e redemonstrated. Lumbar vertebrae normal in height. T2W/T1W bone marrow signal is somewhat heterog eneous due to areas of fatty infiltration. Small osteophytes, disc desiccation, and mild disc space narrowing are present at L4-5 and L5-S1. No acute sacral fracture or stress reaction is evident. Pa tchy areas of T2W/T1W hyperintensity within the sacral ala and iliac bones are due to fatty infiltrat ion. SI joints are unremarkable. Abundant epidural fat is evident in the sacral spinal canal, causi ng significant narrowing of the thecal sac. Conus medullaris terminates at T12-L1. Visible spinal c ord is normal. No retroperitoneal lymphadenopathy, paraspinal mass, or aortic aneurysm is detected. Paraspinal musc ulature is symmetric bilaterally. Visible portions of the liver, spleen, gallbladder, adrenal glands , and left kidney are normal. A T2W anteriorly bright, posteriorly dark, T1W bright, 19 x 18 mm lesi on in the posteromedial cortex upper pole right kidney is new since the September 2015 MRI. No other r ight renal abnormality is detected. No bowel obstruction or malignancy is apparent. Segmental analysis: T11-12: Normal. T12-L1: Normal. L1-2: Normal. L2-3: Normal. L3-4: Minimal posterior disc bulge and dorsal epidural fat cause triangulation of the canal. Each f oramen is patent. L4-5: Minor anterolisthesis of L5, small concentric disc bulge (with the left paramidline annular fi ssure), mild facet arthropathy, and mild ligamentum flavum hypertrophy cause triangulation of the can al and slight inferior narrowing at the opening to each foramen. L5-S1: Minor anterolisthesis of L5, small concentric disc bulge, superimposed left foraminal to far lateral disc extrusion (5 mm AP by 18 mm transverse x 7 mm behind the L5 inferior endplate), bilatera l L5 pars interarticularis defects with hypertrophic changes, and minor facet disease cause slight ri ght and mild left foraminal stenoses. Left L5 nerve root contacts the disc extrusion at the foramen. No central canal stenosis. IMPRESSIONS: 1. Grade 1 anterolisthesis of L5, bilateral L5 pars defects, bilateral foraminal stenoses, left L5 n erve root compromise in the foramen - - make L5-S1 most likely level to be symptomatic. 2. Triangulation of the canal at L3-4 and L4-5. 3. Spinal lipomatosis in the sacral spinal canal. 4. Multifocal bone marrow fatty infiltration. 5. Hemorrhagic lesion / cyst in the upper pole cortex right kidney. Further evaluation of this lesi on could be a pain using dedicated renal CT scan or MRI.
== END 2018-09-04 09:05 | disposition home or self-care (01) ==
LOC: RAD 09:04
PROVIDERS: ATTEND Nurse Practitioner Family
DX: M51.9 Unspecified thoracic, thoracolumbar and lumbosacral intervertebral disc disorder (principal); M43.10 Spondylolisthesis, site unspecified; M43.06 Spondylolysis, lumbar region; M51.26 Other intervertebral disc displacement, lumbar region; M54.9 Dorsalgia, unspecified; G89.29 Other chronic pain

== ENCOUNTER 2019-01-28 09:44 | Outpatient (CLI) | payer OTHER ==
--- NOTE | 2019-01-28 10:36 | DI ---
EXAM: CERVICAL SPINE, 5 VIEWS HISTORY: Cervical level back pain. FINDINGS: Frontal view reveals no scoliosis. Lateral masses of C1-C2 are normally aligned and the o dontoid process is intact. Lateral views of the spine demonstrate normal alignment without spondyl olisthesis. Vertebral body height and disc spaces appear normal. Facet joints are normally placed a nd prevertebral soft tissues normal thickness. Oblique views reveal no bony encroachment upon the ne ural foramina. IMPRESSION: Unremarkable exam.
== END 2019-01-28 09:45 | disposition home or self-care (01) ==
LOC: RAD 09:44
PROVIDERS: ATTEND Family Medicine
DX: M54.2 Cervicalgia (principal)

== ENCOUNTER 2019-02-12 19:07 | Emergency (ER) ==
[2019-02-12 19:11] VITALS: BP 126/82; TEMP 98.2; BMI 24.4
--- NOTE | 2019-02-12 20:04 | CT ---
Exam: CT cervical spine without intravenous contrast. Comparison: Cervical spine x-rays performed 01/28/2019. Reason for exam: Neck pain radiating in the shoulder. FINDINGS: No acute fracture or listhesis. The vertebral body and intervertebral body disc space hei ghts are well maintained. The prevertebral soft tissues measure within normal limits. The dens appe ars intact. No pneumothorax in the partially imaged apices. Impression: No acute fracture or listhesis in the cervical spine.
--- NOTE | 2019-02-12 20:06 | CT ---
Exam: CT of the right shoulder without intravenous contrast. 3-D reconstructed images were provided for interpretation Comparison: 09/21/2015. Reason for exam: Right shoulder pain. FINDINGS: No acute fracture or malalignment. The joint spaces are well maintained. No unexplained calcific soft tissue density or radiopaque retained foreign body. There is minimal degenerative dise ase in the right acromioclavicular joint space. The humeral head articulates with the bony glenoid. Impression: No acute fracture or dislocation in the right shoulder
--- NOTE | 2019-02-12 20:12 | ED.PDOC ---
General ED Provider: Dr. FERNANDO BURNETTE-ER Chief Complaint: Neck Pain Non-Injury Stated Complaint: my neck is hurting and it goes down my arm Time Seen by Physician: 19:10 Mode of Arrival: Walk-In Information Source: Patient Exam Limitations: No limitations Primary Care Provider: FIORDALIZA DE LA O Nursing and Triage Documentation Reviewed and Agree: Yes Does patient meet sepsis criteria?: No System Inflammatory Response Syndrome: Not Applicable Sepsis Protocol: For patient's 13 years and over: Temp is 96.8 and below OR 101 and greater Pulse >90 BPM Resp >20/minute Acutely Altered Mental Status Are patient's symptoms suggestive of a new infection, such as: -Pneumonia -Skin, Soft Tissue -Endocarditis -UTI -Bone, Joint Infection -Implantable Device -Acute Abdominal Infection -Wound Infection -Meningitis -Blood Stream Catheter Infection -Unknown Musculoskeletal Complaint Exam - Neck Pain Complaint/Exam Mechanism of Injury: Reports: No known trauma Onset/Duration: several weeks Symptoms Are: Still present Timing: Constant Initial Severity: Mild Current Severity: Moderate Location: Reports: Discrete Character: Reports: Spasmodic, Stiffness Aggravating: Reports: Position, Movement Associated Signs and Symptoms: Denies: Swelling, Redness, Bruising, Fever, Nuchal rigidity, Weakness, Headache, Paresthesia Cervical Spine Injury Risk Factors: Reports: None Carotid Bruit Present: No Pain on Passive Flexion: No Positive Kernig's Sign: No ROM Limited In: Present: Flexion, Extension Pain Located at: posterior neck Tenderness: Present: Paraspinal Radiates to: Present: Right arm Focal Weakness: Present: None Focal Sensory Loss: Reports: None Differential Diagnoses: Cervical Dislocation, Dystonia, Sprain, Strain Review of Systems - Review Of Systems Constitutional: Reports: No symptoms Eyes: Reports: No symptoms Ears, Nose, Mouth, Throat: Reports: No symptoms Respiratory: Reports: No symptoms Cardiac: Reports: No symptoms GI: Reports: No symptoms : Reports: No symptoms Musculoskeletal: Reports: Muscle pain, Neck pain Skin: Reports: No symptoms Neurological: Reports: No symptoms Endocrine: Reports: No symptoms Hematologic/Lymphatic: Reports: No symptoms All Other Systems: Reviewed and Negative Past Medical History - Past Medical History Previously Healthy: No Endocrine: Reports: Dyslipidemia Cardiovascular: Reports: Hypertension Respiratory: Reports: None Hematological: Reports: None Gastrointestinal: Reports: None Genitourinary: Reports: None Neuro/Psych: Reports: None Musculoskeletal: Reports: Arthritis, Back Pain Cancer: Reports: None - Surgical History General Surgical History: Reports: None - Family History Family History: Reports: None - Social History Smoking Status: Current every day smoker, Heavy tobacco smoker Hx Substance Use: No Alcohol Screening: Occasionally - Immunizations Tetanus Shot up to Date: Yes Physical Exam - Physical Exam Appearance: Well-appearing, No pain distress, Well-nourished Pain Distress: Moderate Eyes: MARTÍN, EOMI, Conjunctiva clear ENT: Ears normal, Nose normal, Oropharynx normal Neck: Supple Respiratory: Airway patent, Breath sounds clear, Breath sounds equal, Respirations nonlabored Cardiovascular: RRR, Pulses normal, No rub, No murmur GI/: Soft, Nontender, No masses, Bowel sounds normal, No Organomegaly Musculoskeletal: Limited ROM Skin: Warm, Dry, Normal color Neurological: Sensation intact, Motor intact, Reflexes intact, Cranial nerves intact, Alert, Oriented Psychiatric: Affect appropriate, Mood appropriate Interpretation - Radiology Interpretation Radiology Interpretation By: Radiologist Radiology Results: Negative Exam Interpreted: CT Scan - EKG Interpretation Time of EKG #1: 20:12 Rate: Normal Rhythm: Sinus Ectopy: None [place]: NL ST Segment: Normal Interpretation: nsr Critical Care Note - Critical Care Note Total Time (mins): 0 Course - Course Orders, Labs, Meds: Lab Review 02/12/19 19:35 Total Creatine Kinase 105.3 Troponin I < 0.012 Orders Category Date Time Status EKG-(ED ONLY) Stat CARDIO 02/12/19 19:15 Ordered CREATINE KINASE Stat LAB 02/12/19 19:35 Completed ESR Stat LAB 02/12/19 19:35 Received TROPONIN I Stat LAB 02/12/19 19:[address] CERVICAL SPINE W/O CONTRAST Stat RADS 02/12/19 19:[address] SHOULDER RIGHT W/O CONTRAST Stat RADS 02/12/19 19:16 Completed Vital Signs: Temp Pulse Resp BP Pulse Ox 02/12/19 19:08 98.2 F 99 H 20 126/82 96 Departure - Departure Time of Disposition: 20:12 Disposition: HOME SELF-CARE Discharge Problem: Cervical radiculopathy Instructions: Cervical Radiculopathy (ED) Condition: Good Pt referred to PMD for follow-up: No IPMP verified?: No Additional Instructions: medrol dose pack---neurontin 200mg tid for pain#30---f/u with pcp Allergies/Adverse Reactions: Allergies No Known Allergies Allergy (Verified 02/12/19 19:13) Home Medications: Ambulatory Orders Cannabis 1 b IH DAILY 12/17/18 Disposition Discussed With: Patient
== END 2019-02-12 20:15 | disposition home or self-care (01) ==
LOC: ED 19:07
DX: M54.12 Radiculopathy, cervical region (principal); E78.5 Hyperlipidemia, unspecified; I10 Essential (primary) hypertension; F17.210 Nicotine dependence, cigarettes, uncomplicated
CPT/HCPCS: 36415; 82550; 84484; 85651; 93005; 93010; 99283

== ENCOUNTER 2019-02-19 09:04 | Outpatient (CLI) ==
--- NOTE | 2019-02-19 17:41 | MRI ---
EXAM: Cervical spine MRI without contrast. HISTORY: Neck pain. COMPARISON: Cervical spine CT scan 02/12/2019, cervical spine radiographs 01/28/2019 and cervical sp ine radiographs 01/28/2019. TECHNIQUE: Multiplanar, multisequence MR images were acquired of the cervical spine without contrast . The study is degraded by patient motion on some sequences. FINDINGS: The study is degraded by patient motion and decreased [id number] which limits spatial and contrast resolution. The craniocervical junction is normal and the cervical cord has no abnorma l T2 hyperintensities. There is minor mid cervical dextroscoliosis centered at C4-5 and mild straigh tening of the usual cervical lordosis with 1.5 mm retrolisthesis of C5 on C6 and 1 mm retrolisthesis of C6-C7.. The cervical vertebra are generally normal in height and intrinsic bone marrow signal. T here is minor ventral spondylosis at C5-6 and C6-7. Detail is limited by patient motion. There is d esiccation of the cervical intervertebral discs. There are no paravertebral masses. Visualized lung apices are clear. C2-3: There is a minor left posterior disc bulge without central canal stenosis. Neural foramina ar e patent. C3-4: There is a minor left posterior disc bulge with endplate osteophytes and mild left uncovertebr al hypertrophy. The neural foramina are poorly seen due to patient motion. As visualized, there is probably no central canal stenosis or foraminal stenosis. C4-5: The intervertebral disc is normal. There is minor left facet arthropathy. There is no centra l canal stenosis or foraminal stenosis. C5-6: There is a mild spondylotic disc bulge and possible small central disc protrusion. Detail is limited by patient motion. Right uncovertebral hypertrophy is present and there is probable mild rig ht neural foraminal stenosis. There is no central canal stenosis. C6-7: There is a mild spondylotic disc bulge with endplate osteophytes that is asymmetric to the rig ht with a more focal right posterolateral component that merges with right uncovertebral hypertrophy. There is minor left greater than right facet arthropathy and probable mild to moderate right and mi ld left neural foraminal stenosis and mild spinal stenosis. AP diameter of the thecal sac is 8.8 mm. C7-T1: The intervertebral disc is normal. There is no central canal stenosis or foraminal stenosis. IMPRESSION: 1. The study is technically limited by patient motion and decreased [id number]. As visualized, there is minor cervical degenerative spondylosis with probable mild spinal stenosis at C6-7. 2. Mild discogenic disease C5-6 and C6-7 with possible small central disc protrusion at C5-6.
== END 2019-02-19 09:05 | disposition home or self-care (01) ==
LOC: RAD 09:04
PROVIDERS: ATTEND Family Medicine
DX: M54.2 Cervicalgia (principal)

== ENCOUNTER 2019-03-19 08:15 | Outpatient (RCR) ==
--- NOTE | 2019-02-26 11:54 | RS.OPPTEV2 ---
Date of Note: 02/26/19 Visit #: 1 Number of visits approved by Insurance: N/A Date of Evaluation: 02/26/19 Payer Source: MEDICARE Surgery Performed?: No Treatment Diagnosis: Cervical pain with radiculopathy into RUE History of Condition/Mechanism of Injury:: No definite injury, pt awoke with stiffness in cervical spine, and pain progressed. Prior Level of Function.....Patient was independent with: ADL's, Self Care, Caregiving, Ambulation/Mobility, Community Integration/Access Functional Limitations: Sleep, Self Care, ADL's, Reaching, Pushing, Pulling, Lifting, Carrying Current Subjective/complaints:: pt states that his pain in cervical spine radiating into shld to elbow with burning pain in shoulder blade. Also reports has constant numbness and tingling elbow to hand. pt has an appt 02/28/19 with neuro specialist in [place]. Treatment Side (optional): Right *Precautions: n/a Medical History Medical History: Hypertension, Arthritis Medical History Comments:: History of back pain due to work injury in 2014. Surgical History Comments:: arthroscopic surgery R knee, intestinal surgery as a baby. Smoking Status: Current every day smoker Diagnostic Testing/Imaging:: cervical MRI: cervical degenerative spondylosis, probable mild spinal stenosis C6-7, discogenic disease C5-6, C6-7 Hx Home Medications: Lisinopril, Celexa Patient's Goals: decrease pain Pain Assessment - Pain Description Pain Location: R cervical upper trap radiating into shld to elbow, also with pain at med distal border of R scapula Pain Description: Burning, Sharp Current Pain Intensity: 7 Worst Pain Intensity: 10 Functional Outcome Measure Neck Disability Index: 33 - G Codes & Severity Modifier G Codes & Modifier: n/a Source of G Code score: n/a Observation - Observation Posture: Forward Head, Rounded Shoulders, Increased Thoracic Kyphosis, Decreased Lumbar Lordosis, Decreased Cervical Lordosis Handedness: Right Gait - Gait Pattern Gait Comments: pt amb with guarded posture and decreased R knee ROM due to previous injury. General Range of Motion: BUE WFL's with pain with R shld ROM. BLE WFL's with pain with R knee ROM Muscle Strength: LUE 5/5. RUE shld flex 3+/5, elbow flex/ext 4-/5, decreased survey questionnaire designer strength. LLE 5/5. RLE grossly 4-/5 - ROM Cervical Spine Range of Motion Limitations: Soft Tissue Tightness, Muscle Weakness, Pain Comments: pt with cervical flex wFL's, ext significantly limited with pain as well as R cervical rotation painful and somewhat limited. - Strength Cervical Extension: 3- Fair- Cervical Flexion: 4- Good- Cervical Lateral Flexion: 4- Good- - Special Tests Foraminal Distraction: Negative Foraminal Compression: Positive Right Ornamental Machine Operator Strength Left Hand Ornamental Machine Operator Strength: 92# Right Hand Ornamental Machine Operator Strength: 22# Dynamometer Testing Position: 2nd Position Palpation Palpation Findings: Tenderness, Trigger Point, Muscle Guarding Comments:: pt with tenderness to light palpation to medial border of R scapula as well as R upper trap and R cervical paraspinals. Trigger point present R medial border of scapula with sharp burning pain down RUE with pressure to trigger point. Significant muscle guarding noted in cervical paraspinal, upper trap and subscapularis. Sensation - Sensation Right Upper Extremity: Impaired (n/t elbow to hand) Left Upper Extremity: Intact/Normal Right Lower Extremity: Intact/Normal Left Lower Extremity: Intact/Normal Balance - Sitting Balance Static Sitting Balance: Normal Dynamic Sitting Balance: Normal - Standing Balance Static Standing Balance: Good Dynamic Standing Balance: Good - Treatment Modality: Electrical Stim Unattended Parameters/Method Applied: IFC x 11 mins at 10ma pt unable to tolerate increased time with Estim due to increasing pain radiating into RUE. Treatment Area: R medial scapula Patient Position: Sitting Comments: (had attempted ultrasound initially however unable to tolerate) - Heat/Cryotherapy Treatment: Cryotherapy Comments:: R scapula and cervical Interventions - Exercise/Activities/Manual Therapy Exercises/Activities: pt performed cervical retraction unable to tolerate further ex at this time due to pain. Manual Therapy: n/a HOME EXERCISE PROGRAM: pt given a written HEP and instructed pt on scapular retraction as well as upper trap stretch, cervical retraction. - Charges Timed Code Treatment Minutes: 49 Total Treatment Time: 61 Procedures billed for this date of service:: eval low, estim unattended, cold pack EVALUATION COMPLEXITY LEVEL EVALUATION COMPLEXITY LEVEL: HISTORY: Low, EXAM OF BODY SYSTEMS: Low, CLINICAL PRESENTATION: Low, CLINICAL DECISION MAKING: Low Assessment Assessment: pt presents with significant cervical pain as well as scapular pain with radiculopathy into RUE. pt with decreased cervical ROM, decreased strength R shld, decreased survey questionnaire designer strength R hand. Feel pt would benefit from skilled PT for therex for gentle stretching, strengthening as well as modalities to decrease pain. Patient Education: Home Exercise Program, Education of Plan of Care Rehab Potential: Good Short Term Goals Goal #1: pt independent with initial HEP Goal to be met by: 03/19/19 Goal #2: Improve cervical ROM WFL's with decreased pain. Goal to be met by: 03/19/19 Goal #3: Pain decreased to < 6/10 Goal to be met by: 03/19/19 Goal #4: Improve RUE strength 4-/5 Goal to be met by: 03/19/19 Dinkey Dispatcher Goals Goal #1: Improvement on neck disability index < 25 Goal to be met by: 04/09/19 Goal #2: pt with no reports of radicular pain in RUE Goal to be met by: 04/09/19 Goal #3: pt able to perform normal daily activities with less pain Goal to be met by: 04/09/19 Plan - Treatment to be Provided Procedures: Therapeutic Exercises, Therapeutic Activity, Manual Therapy, Massage , Patient Education Modalities: Electrical Stimulation, Ultrasound/Phonophoresis, Cryotherapy, Hot Packs, Mechanical Traction - Treatment Plan Frequency: 2-3x a week Duration: 6 weeks Dates of Dinkey Dispatcher Goals: 04/09/19 Expiration date of current Insurance Approval:: n/a - Treatment Code (1) Cervical pain Code(s): M54.2 - CERVICALGIA (2) Radicular pain of upper extremity Code(s): M54.10 - RADICULOPATHY, SITE UNSPECIFIED (3) Muscle tightness Code(s): M62.89 - OTHER SPECIFIED DISORDERS OF MUSCLE (4) Muscle weakness Code(s): M62.81 - MUSCLE WEAKNESS (GENERALIZED)
--- NOTE | 2019-03-04 09:20 | RS.OPPTDN ---
Subjective Date of Note: 03/04/19 Visit #: 2 Number of visits approved by Insurance: na Date of Evaluation: 02/26/19 Payer Source: MEDICARE Treatment Diagnosis: Cervical pain with radiculopathy into RUE Current Subjective/complaints:: Patient reports radiating pain into the entire R UE and hand.He reports the e-stim seemed to aggravate the pain after last treatment.We discussed the POC for today.He reports seeing a neurosurgeon in [place] last . , 02-28-19.They recommend the therapy ,then possible surgery if no progress made. *Precautions: n/a Pain Assessment - Pain Description Pain Location: cervical and R UE / hand Pain Description: Radiating, Dull, Aching, Chronic Current Pain Intensity: 7/10 - Heat/Cryotherapy Treatment: Hot Pack (20 mins. prior to traction) - Traction Treatment Method: Mechanical, Intermittent, Cervical Patient Position: Supine Amount of Force Applied: 13-14 Hold Time: 30 secs. Rest Time: 5 secs Duration of treatment: 10 mins. Interventions - Exercise/Activities/Manual Therapy Exercises/Activities: 15 mins. ,including chin tucks,cervical rotartion to L and R ,lateral flexion in shortened ROM ( due to pain /radiculopathy ).Patient education for postural awareness to reduce forward head /rounded shoulders. Total minutes of Exercise: 15 Manual Therapy: n/a Total minutes of Manual Therapy: 0 HOME EXERCISE PROGRAM: pt given a written HEP and instructed pt on scapular retraction as well as upper trap stretch, cervical retraction. - Charges Timed Code Treatment Minutes: 15 Total Treatment Time: 45 Procedures billed for this date of service:: hp,traction,ex 1 Assessment: Patient reports slight decrease in pain whensupine after moist heat today.He has no increased symptoms when on traction.The cervical lateral flexion elicits pain either direction.The chin tucks decrease pain slightly.He presents with very forward head/rounded shoulders osturing today ,very guarded due to pain.He reports avoidinglooking up ,causes intense pain.He understands to use ice/moist heat for relief,has been doing this at home.He is attentive to recommendations for his care. Patient Education: Education of diagnosis, Body/Joint mechanics, Home Exercise Program, Home Safety, Activity Modification, Education of Plan of Care Short Term Goals Goal #1: pt independent with initial HEP Goal to be met by: 03/19/19 Progress towards Goal:: Progressing Goal #2: Improve cervical ROM WFL's with decreased pain. Goal to be met by: 03/19/19 Goal #3: Pain decreased to < 6/10 Goal to be met by: 03/19/19 Goal #4: Improve RUE strength 4-/5 Goal to be met by: 03/19/19 Branch Assistant Goals Goal #1: Improvement on neck disability index < 25 Goal to be met by: 04/09/19 Goal #2: pt with no reports of radicular pain in RUE Goal to be met by: 04/09/19 Goal #3: pt able to perform normal daily activities with less pain Goal to be met by: 04/09/19 Goal #4: Patient able to sleep 6 hours without interruption from back pain. Goal to be met by: 11/25/15 Plan Dates of Branch Assistant Goals: 04/09/19 Expiration date of current Insurance Approval:: na PLAN: Continue skilled PT to reduce/eliminate cervical pain and radiculopathy.
--- NOTE | 2019-03-07 08:55 | RS.OPPTDN ---
Subjective Date of Note: 03/07/19 Visit #: 3 Number of visits approved by Insurance: na Date of Evaluation: 02/26/19 Payer Source: MEDICARE Treatment Diagnosis: Cervical pain with radiculopathy into RUE Current Subjective/complaints:: Patient reports no noticeable relief after last session .He has very guarded motions involving the cervical spine and the pain is radiating into the R UE. *Precautions: n/a Pain Assessment - Pain Description Pain Location: cervical and R UE Pain Description: Radiating, Aching, Chronic Current Pain Intensity: 7/10 Other Comments regarding Pain:: Radiating pain is in the neck and down to the R elbow , then below elbow into the R hand is numb. - Heat/Cryotherapy Treatment: Hot Pack (20 mins. prior to ex and traction) - Traction Treatment Method: Mechanical, Intermittent, Cervical Patient Position: Supine Amount of Force Applied: 14# Hold Time: 30 secs. Rest Time: 5 secs. Duration of treatment: 15 mins. Interventions - Exercise/Activities/Manual Therapy Exercises/Activities: 5 mins. ,including chin tucks,cervical rotartion to L and R ,lateral flexion in shortened ROM ( due to pain /radiculopathy ).Patient education for postural awareness to reduce forward head /rounded shoulders.Abbreviated exercise session due to pain elevates with each motion. Total minutes of Exercise: 5 Manual Therapy: n/a Total minutes of Manual Therapy: 0 HOME EXERCISE PROGRAM: pt given a written HEP and instructed pt on scapular retraction as well as upper trap stretch, cervical retraction. - Charges Timed Code Treatment Minutes: 5 Total Treatment Time: 40 Procedures billed for this date of service:: hp,traction Assessment: Patient reportsminimal relief while on heat and traction ,but unable to tolerate the exercises today due to pain ,muscle guards with each attempted motion. Patient Education: Body/Joint mechanics, Home Exercise Program, Activity Modification, Education of Plan of Care Short Term Goals Goal #1: pt independent with initial HEP Goal to be met by: 03/19/19 Progress towards Goal:: Progressing Goal #2: Improve cervical ROM WFL's with decreased pain. Goal to be met by: 03/19/19 Progress towards Goal:: No Change Goal #3: Pain decreased to < 6/10 Goal to be met by: 03/19/19 (7/10) Progress towards Goal:: No Change Goal #4: Improve RUE strength 4-/5 Goal to be met by: 03/19/19 (na) Skilled Nursing Goals Goal #1: Improvement on neck disability index < 25 Goal to be met by: 04/09/19 Goal #2: pt with no reports of radicular pain in RUE Goal to be met by: 04/09/19 Goal #3: pt able to perform normal daily activities with less pain Goal to be met by: 04/09/19 Goal #4: Patient able to sleep 6 hours without interruption from back pain. Goal to be met by: 11/25/15 Plan Dates of Skilled Nursing Goals: 04/09/19 Expiration date of current Insurance Approval:: na PLAN: Cont. skilled PT to reduce/eliminate cervical pain /radiculopathy.
--- NOTE | 2019-03-12 09:24 | RS.OPPTDN ---
Subjective Date of Note: 03/12/19 Visit #: 4 Number of visits approved by Insurance: Reassess at 10th Date of Evaluation: 02/26/19 Payer Source: MEDICARE Treatment Diagnosis: Cervical pain with radiculopathy into RUE Current Subjective/complaints:: Patient says traction helps temporarily. Reports "the pull feels good." He says he has been trying HEP. States pain today is 6-7/10 at the neck and down the R UE to the elbow and then at the hand. *Precautions: n/a - Heat/Cryotherapy Treatment: Hot Pack (cervical x 20 mins in sitting) - Traction Treatment Method: Mechanical, Intermittent, Cervical Patient Position: Supine Amount of Force Applied: 15-16 Hold Time: 30 Rest Time: 5 Duration of treatment: 15 Interventions - Exercise/Activities/Manual Therapy Exercises/Activities: Reviewed postural mechanics and HEP. Educated about progression of traction and benefits. Manual Therapy: n/a HOME EXERCISE PROGRAM: pt given a written HEP and instructed pt on scapular retraction as well as upper trap stretch, cervical retraction. - Charges Timed Code Treatment Minutes: 5 Total Treatment Time: 40 Procedures billed for this date of service:: hp, mechanical traction Assessment: Patient amb in without R UE swing. He holds onto the R UE intermittently. He admits improved pain temporarily with traction and admits to significant pain relief during "hold" phase of traction and return of pain with "relax." Progression of traction naldo well, but positioning is difficult to naldo at times, making it hard for him to transition from supine to sit. He may benefit from addition of modalities (estim/us) to ease mm guarding prior or following traction. Patient Education: Education of diagnosis, Body/Joint mechanics, Home Exercise Program, Education of Plan of Care Patient demonstrates compliance with HEP?: Yes Short Term Goals Goal #1: pt independent with initial HEP Goal to be met by: 03/19/19 Progress towards Goal:: Progressing Goal #2: Improve cervical ROM WFL's with decreased pain. Goal to be met by: 03/19/19 Progress towards Goal:: No Change Goal #3: Pain decreased to < 6/10 Goal to be met by: 03/19/19 (7/10) Progress towards Goal:: No Change Goal #4: Improve RUE strength 4-/5 Goal to be met by: 03/19/19 (na) Correction Goals Goal #1: Improvement on neck disability index < 25 Goal to be met by: 04/09/19 Goal #2: pt with no reports of radicular pain in RUE Goal to be met by: 04/09/19 Goal #3: pt able to perform normal daily activities with less pain Goal to be met by: 04/09/19 Goal #4: Patient able to sleep 6 hours without interruption from back pain. Goal to be met by: 11/25/15 Plan Dates of Photo Graphics Librarian Goals: 04/09/19 Expiration date of current Insurance Approval:: 04/09/19 PLAN: Continue BIW progressing traction and possibly adding modalities to further ease pain and mm guarding. Progress with ROM and postural stability.
--- NOTE | 2019-03-14 13:11 | RS.OPPTDN ---
Subjective Date of Note: 03/14/19 Visit #: 5 Number of visits approved by Insurance: Reassess at 10 Date of Evaluation: 02/26/19 Payer Source: MEDICARE Treatment Diagnosis: Cervical pain with radiculopathy into RUE Current Subjective/complaints:: Patient says he still has severe neck pain extending to the R UE and hand. Says with prolonged holds on traction relieves his pain, but begins to hurt worse and has tingling to the hand after about 10 or 15 mins. States he is wanting surgery so that he can finally have relief. Also, c/o back pain, but is not as bad as the neck currently. *Precautions: n/a - Treatment Modality: Electrical Stim Unattended Parameters/Method Applied: Hivolt 4 small pads @ R UT and scapula @ 115 pk volts x 15 mins (stopped early due to increasing burning and discomfort to the R hand). Patient Position: Sitting - Heat/Cryotherapy Treatment: Hot Pack Comments:: cervical with estim - Traction Treatment Method: Mechanical, Intermittent, Cervical Patient Position: Supine Amount of Force Applied: 18-19 Hold Time: 35 Rest Time: 5 Duration of treatment: 16 Interventions - Exercise/Activities/Manual Therapy Exercises/Activities: Reviewed postural mechanics and HEP. Educated about progression of traction and benefits. Discussed forwarding notes to his PCP and lack of significant pain relief at this point. Assessed cervical ROM actively and passively for rotation and SB bilaterally. Each direction causes severe neck pain even into the R UE. Encouraged patient to perform postural techniques and shoulder shrugs to alleviate mm guarding and improve general posture. Total minutes of Exercise: 10 Manual Therapy: n/a HOME EXERCISE PROGRAM: pt given a written HEP and instructed pt on scapular retraction as well as upper trap stretch, cervical retraction. - Charges Timed Code Treatment Minutes: 10 Total Treatment Time: 40 Procedures billed for this date of service:: hp, estim (un), mechanical traction Assessment: Patient continues with high pain rating at rest and with cervical ROM. Pain relief only experienced with "hold" time during traction. No position relieves his symptoms. Cspine ROM both directions of SB and Rotation causes increased radicular symptoms. Also, his sleep is disturbed. He is hopeful to have surgical intervention and not wait until his PT visits are used. He demo moderate mm guarding throughout the R UT and scapular region and also demo tenderness with mild palpation to this same area. He amb into dept without R arm swing and extended at side and forward flexed posture. Patient Education: Education of diagnosis, Body/Joint mechanics, Home Exercise Program, Education of Plan of Care Patient demonstrates compliance with HEP?: Yes (somewhat and as able) Short Term Goals Goal #1: pt independent with initial HEP Goal to be met by: 03/19/19 Progress towards Goal:: Progressing Goal #2: Improve cervical ROM WFL's with decreased pain. Goal to be met by: 03/19/19 Progress towards Goal:: No Change Goal #3: Pain decreased to < 6/10 Goal to be met by: 03/19/19 (7/10) Progress towards Goal:: No Change Goal #4: Improve RUE strength 4-/5 Goal to be met by: 03/19/19 (na) Field Identification Specialist Goals Goal #1: Improvement on neck disability index < 25 Goal to be met by: 04/09/19 Goal #2: pt with no reports of radicular pain in RUE Goal to be met by: 04/09/19 Progress towards goal: No Change Goal #3: pt able to perform normal daily activities with less pain Goal to be met by: 04/09/19 Goal #4: Patient able to sleep 6 hours without interruption from back pain. Goal to be met by: 11/25/15 Plan Dates of Field Identification Specialist Goals: 04/09/19 Expiration date of current Insurance Approval:: 04/09/19 PLAN: Patient to continue BIW next week and will hold further sessions if pain remains unchanged despite modification of treatment.
--- NOTE | 2019-03-19 09:00 | RS.OPPTDN ---
Subjective Date of Note: 03/19/19 Visit #: 6 Number of visits approved by Insurance: 10 Date of Evaluation: 02/26/19 Payer Source: MEDICARE Treatment Diagnosis: Cervical pain with radiculopathy into RUE Current Subjective/complaints:: Patient says he is hurting worse. Says he can hardly stand it and is ready to have surgery. He says pain continues down the R arm to the hand. States he does not want traction or estim, that it makes him worse the previous visit. *Precautions: n/a - Heat/Cryotherapy Treatment: Hot Pack (cervical with pillow under R UE sitting) Interventions - Exercise/Activities/Manual Therapy Exercises/Activities: Discussed HEP/anatomy and postural mechanics as able to perform. 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 Encouraged patient to contact Dr. Davis about lack of progression and also contact his MD in [place] to possibly move up his appt./ surgical procedure. Total minutes of Exercise: 12 Manual Therapy: n/a HOME EXERCISE PROGRAM: pt given a written HEP and instructed pt on scapular retraction as well as upper trap stretch, cervical retraction. - Charges Timed Code Treatment Minutes: 12 Total Treatment Time: 27 Procedures billed for this date of service:: non Assessment: Neck Disability Index: 35 or 70% impairment. General Contractor strength to the R has worsened to 15# from 22# on EVAL. Remains tender to light palpation to R UT and along the vetebral processes of Cspine. Decreased R rotation and SB ROM compared to EVAL Patient Education: Education of diagnosis, Body/Joint mechanics, Home Exercise Program, Education of Plan of Care Patient demonstrates compliance with HEP?: Yes Short Term Goals Goal #1: pt independent with initial HEP Goal to be met by: 03/19/19 Progress towards Goal:: Progressing Goal #2: Improve cervical ROM WFL's with decreased pain. Goal to be met by: 03/19/19 Progress towards Goal:: No Change Goal #3: Pain decreased to < 6/10 Goal to be met by: 03/19/19 (7/10) Progress towards Goal:: Regressing Goal #4: Improve RUE strength 4-/5 Goal to be met by: 03/19/19 (na) Progress towards Goal:: Regressing E Tailer Goals Goal #1: Improvement on neck disability index < 25 Goal to be met by: 04/09/19 Progress towards goal: Regressing Comments: now 35 or 70% impairment (2 points worse) Goal #2: pt with no reports of radicular pain in RUE Goal to be met by: 04/09/19 Progress towards goal: No Change Goal #3: pt able to perform normal daily activities with less pain Goal to be met by: 04/09/19 Progress towards goal: No Change Goal #4: Patient able to sleep 6 hours without interruption from back pain. Goal to be met by: 11/25/15 Progress towards goal: No Change Plan Dates of E Tailer Goals: 04/09/19 Expiration date of current Insurance Approval:: 04/09/19 PLAN: Patient to discontinue further therapy and follow up with his MD as he has regressed in most areas and is not responding to any treatment even with modification.
== END 2019-03-22 23:59 | disposition short-term general hospital (02) ==
PROVIDERS: ATTEND Family Medicine
DX: M54.2 Cervicalgia (principal); S46.811D Strain of other muscles, fascia and tendons at shoulder and upper arm level, right arm, subsequent encounter